=== PATIENT | male | born 1955 | race Caucasian/White ===

== ENCOUNTER 2016-10-15 07:01 | Day surgery (SDC) | payer OTHER ==
[~2016-10-15] VITALS: Ht 175.3 cm; Wt 88.2 kg
--- NOTE | ~2016-10-15 | CATH ---
Cardiac Diagnostic Report Demographics Patient Name PALLAVI Ch Gender Male Date of 1955 Age 61 year(s) Patient Number [id number] Date of Study 10/15/2016 Visit Number [id number] Room Number Corporate ID Ht 175.26 cm Wt 88 kg Accession Number [id number] BSA 2.04 m kg/m Referring Fruehling Hank R Primary Physician Physician MD Luz Marina Lynn MD Performing Fruehling Hank R Secondary Physician Physician Diagnostic Fruehling Hank R Assisting Physician Physician Interventional Fruehling Hank R Physician Tailings Man Physician Findings and Conclusions Diagnostic Findings and Conclusion Two vessel coronary artery disease. Widely patent stents in circumflex. 50% mid LAD with evidence of bridging. 70% apical LAD. EF 65-70%. Diagnostic Recommendations Continued aggressive risk factor modification. No driving restrictions. Procedure Description The patient was brought to the diagnostic cardiac catheterization laboratory in the fasting, non-sedated state. Informed consent was obtained in the written and verbal form after the risks and benefits were explained. The patient had no further questions and agreed to proceed. The planned puncture-incision site(s) were clipped and prepped with ChloraPrep and draped in the usual sterile manner. Conscious sedation, supplemental oxygen, and pain control medications were delivered by a registered nurse under physician guidance. Surface ECG rhythm, blood pressure measurement, and pulse oximetry were monitored throughout the procedure. Arterial access. The right radial access site was infiltrated with lidocaine. The vessel was entered with the Seldinger technique. A 6F sheath was advanced into the vessel and used for catheter placement. Selective right coronary angiography. A JR4 catheter was advanced into the right coronary vessel ostium under fluoroscopic guidance. Contrast was injected by hand. Images were obtained in multiple projections. Left heart catheterization with ventriculography. A JR4 catheter was advanced across the aortic valve to the left ventricle under fluoroscopic guidance. Resting hemodynamics were obtained. With the catheter at the left ventricular apex, contrast was injected. Images were obtained in CONTRERAS projection. Post-ventriculography LV pressure was obtained. The catheter was gradually withdrawn into the aorta with continuous pressure recording Selective left coronary angiography. A JL3.5 catheter was advanced into the left coronary vessel ostium under Fluoroscopic guidance. Contrast was injected by hand. Images were obtained in multiple projections. Hemostasis: The sheath was removed and a TR Band was placed. Hemostasis was achieved. The patient was transferred to the Pre and Post surgical nursing floor via cart accompanied by a nurse. The patient left the laboratory in stable condition. Procedure Procedure Type Diagnostic procedure:Ventriculogram:, Left, Angiography:, Coronary Angios /[facility] The procedure was explained in detail to the patient. Risks, complications and alternative treatments were reviewed. Written consent was obtained. Medications Reviewed with Patient prior to Procedure. Complications: No Complication. Angiographic Findings Dominance: Right Cardiac Arteries and Lesion Findings LMCA: Normal (0% Stenosis). LAD: Abnormal. Lesion on Dist LAD: Proximal subsection.50% stenosis . Lesion on Dist LAD: Distal subsection.70% stenosis . Lesion on Prox LAD: 30% stenosis . LCx: Abnormal.There is a previous stent on Prox CX showing wide patency. There is a previous stent on Prox CX Ostial showing wide patency. Lesion on Mid CX: 30% stenosis . RCA: Abnormal. Lesion on Prox RCA: 30% stenosis . Lesion on Mid RCA: 30% stenosis . Lesion on Dist RCA: 30% stenosis . Coronary Tree Procedure Data Procedure Date Date: 10/15/2016Start: 10:26 AMEnd: 10:52 AM Entry Locations - Percutaneous access was performed through the Right Radial artery (Primary location). A 6 Fr sheath was inserted. Hemostasis was successfully obtained using a TR band. Procedure Medications Order and Administration + + +-------+--------+ !Time !Medication !Dosage !Route ! + + +-------+--------+ !10/15/2016 !Versed !2 mg !I.V. ! !10:07 AM ! ! ! ! + + +-------+--------+ !10/15/2016 !Fentanyl !50 mcg !I.V. ! !10:07 AM ! ! ! ! + + +-------+--------+ !10/15/2016 !Sodium Chloride !10 ml !I.V. ! !10:08 AM ! ! ! ! + + +-------+--------+ !10/15/2016 !Oxygen !4 l/min!NC ! !10:21 AM ! ! ! ! + + +-------+--------+ !10/15/2016 !SF Radial Cocktail: 200mcg Nitro, 2.5 mg ! !I.A. ! !10:28 AM !Verapamil, 5000u Heparin ! ! ! + + +-------+--------+ !10/15/2016 !Versed !1 mg !I.V. ! !10:31 AM ! ! ! ! + + +-------+--------+ !10/15/2016 !Fentanyl !25 mcg !I.V. ! !10:31 AM ! ! ! ! + + +-------+--------+ Devices Used - A6 FrCATH 6F FR4 CATHETER 100CMwas used for:RightsideCoronary Angios. - A6 FrCATH 6FR FL3.5 CATHETER 100CMwas used for:LeftsideCoronary Angios. Contrast Material - Isovue 99384 ml Fluoroscopy Time: Diagnostic: 1:42 minutes. Total: 1:42 minutes. Fluoroscopy Dose: Diagnostic: 320 mGy. Total: 320 mGy. Estimated Blood Loss: 8 ml. Medical History Allergies - No known allergies. Risk Factors The patient risk factors include:prior PCI on 03/12/2011;treated hypercholesterolemia, treated hypertension, last creatinine: 1.4 mg/dl, creatinine clearance: 70.71 ml/min, dyslipidemia and Current/Recent(w/in 1 year) tobacco use. Admission Data Admission Date: 10/15/2016 Admission Time: 07:01 AM Clinical Evaluation Leading to Procedure Diagnosed on 10/14/2016 01:00 PM. [facility] LV function assessed as:Normal. Ejection Fraction - 10/15/2016 - Method: LV gram. EF%: 65. Hemodynamics Condition: Rest O2 Consumption: Estimated: 240.47Heart Rate: 70 bpm Pressures (mmHg) +-----+ + !Site !Pressure ! +-----+ + !AO !82/56 (66) ! +-----+ + !LV !83/0 ,5 ! +-----+ + !AO !80/47 (62) ! +-----+ + !LV !81/-1 ,2 ! +-----+ + Valve Gradients and Areas + +---------+---------+---------+ +---------+ + !Valve !Peak !Mean !Area !Index !Flow !Source ! + +---------+---------+---------+ +---------+ + !Aortic !0 !0 ! ! ! ! ! + +---------+---------+---------+ +---------+ + !Aortic !0 !0 ! ! ! ! ! + +---------+---------+---------+ +---------+ + Shunts Oxygen Values O2 Capacity 163.2 O2 Consumption 240.47 Discharge Data Discharge Date: 10/15/2016 Hospital Status: Outpatient Signatures
[2017-03-04] MEDS ORDERED: CO Q-1010 MG PO (15:39)
[2017-03-04] MEDS ORDERED: PLAVIX75 MG PO (15:39)
[2017-03-04] MEDS ORDERED: CRESTOR20 MG PO (15:39)
[2017-03-04] MEDS ORDERED: PROTONIX40 MG PO (15:39)
[2017-03-04] MEDS ORDERED: ASPIRIN EC81 MG PO (15:40)
[2017-03-04] MEDS ORDERED: FISH OIL 1,0001 EACH PO (15:40)
[2017-03-04] MEDS ORDERED: ULTRAM DPS50 MG PO (15:41)
[2017-03-04] MEDS ORDERED: NITROSTAT0.4 MG SL (15:41)
[2017-03-04] MEDS ORDERED: VITAMIN D-32000 UNI1 PO (15:41)
[2017-03-04] MEDS ORDERED: COLACE-DPS100 MG PO (15:42)
[2017-03-04] MEDS ORDERED: BACITRACIN1 EACH TP (15:42)
[2017-03-04] MEDS ORDERED: PERCOCET 10 DPS1 TAB PO (15:43)
[2017-03-04] MEDS ORDERED: FEOSOL-DPS325 MG PO (15:43)
[2017-03-04] MEDS ORDERED: VALIUM5 MG PO (15:43)
[2017-03-04] MEDS ORDERED: MILK OF MA400 MG/5 M PO (15:44)
[2017-03-04] MEDS ORDERED: ASCORBIC ACID500 MG PO (15:44)
[2017-03-04] MEDS ORDERED: LEVAQUIN DPS750 MG PO (15:44)
[2017-03-04] MEDS ORDERED: DULCOLAX-DPS10 MG PR (15:45)
[2017-03-04] MEDS ORDERED: SENOKOT-S TABL1 EACH PO (15:45)
== END 2016-10-15 13:17 | disposition home or self-care (01) ==
LOC: SSS 07:01
DX: I25.10 Atherosclerotic heart disease of native coronary artery without angina pectoris (principal); I10 Essential (primary) hypertension; E78.5 Hyperlipidemia, unspecified; I73.9 Peripheral vascular disease, unspecified; F17.210 Nicotine dependence, cigarettes, uncomplicated; Z79.82 Long term (current) use of aspirin; Z79.899 Other long term (current) drug therapy; Z79.891 Long term (current) use of opiate analgesic

== ENCOUNTER → 2016-11-05 | Outpatient (CLI) | payer OTHER ==
[~2016-11-05] MED LIST: ASCORBIC ACID500 MG PO; ASPIRIN EC81 MG PO; BACITRACIN1 EACH TP; CO Q-1010 MG PO; COLACE-DPS100 MG PO; CRESTOR20 MG PO; DULCOLAX-DPS10 MG PR; FEOSOL-DPS325 MG PO; FISH OIL 1,0001 EACH PO; LEVAQUIN DPS750 MG PO; MILK OF MA400 MG/5 M PO; NITROSTAT0.4 MG SL; PERCOCET 10 DPS1 TAB PO; PLAVIX75 MG PO; PROTONIX40 MG PO; SENOKOT-S TABL1 EACH PO; ULTRAM DPS50 MG PO; VALIUM5 MG PO; VITAMIN D-32000 UNI1 PO
== END | disposition home or self-care (01) ==
LOC: RAD.S 15:22
DX: M54.17 Radiculopathy, lumbosacral region (principal); M47.816 Spondylosis without myelopathy or radiculopathy, lumbar region; M47.814 Spondylosis without myelopathy or radiculopathy, thoracic region